=== PATIENT | female | born 1970 | race Caucasian/White ===

== ENCOUNTER 2025-05-23 10:51 | Outpatient (AMB) | payer BC, SELFPAY ==
--- NOTE | 2025-05-23 10:52 | MHC.OFFVIS ---
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 Allergies amitriptyline Allergy (Severe, Verified 05/23/25 10:57) seizures, missing time Latex, Natural Rubber Adverse Reaction (Severe, Verified 05/23/25 10:57) contact dermatitis opioids Adverse Reaction (Severe, Uncoded 05/23/25 10:57) migraines Medication List - Last Reconciled 05/23/25 by Katarina Call LPN baclofen 20 mg PO TID celecoxib (Celebrex) 100 mg PO BID cholecalciferol (vitamin D3) 50 mcg PO DAILY lidocaine 4% 1 appl topical BID magnesium glycinate mg PO pregabalin (Lyrica) 200 mg PO TID vitamin B comp and C no.3 (B Complex Plus Vitamin C) 1 cap PO DAILY HPI HPI Lumbar radiculopathy: Details: History of Present Illness The patient is a 54-year-old female presenting with low back pain with referred pain to the left lower extremity and weakness. The pain has been present for the past 2 years and has worsened over the past 6 months. She was evaluated by Dr. Ibrahim for sacroiliac joint dysfunction and recommended a brace, but her symptoms worsened with increased pain and reduced range of motion. An MRI revealed severe facet disease at L4-5 and L5-S1 without significant canal stenosis. She completed physical therapy but was unable to tolerate medications such as tramadol, gabapentin, or narcotics. The patient also has moderate left hip osteoarthritis, which affects her quality of life. A hip injection provided some relief, but symptoms have continued to worsen. She has a history of trigeminal neuralgia, which has been managed with Lyrica, but she reports breakthrough pain in her right upper face over the past six months. She also has Raynaud's phenomenon and a history of cervical cancer, which was treated surgically last year. Pain Description - Onset: Pain present for 2 years, worsening over the past 6 months - Quality: Sharp, stabbing pains, burning sensation - Location: Low back with radiation to left lower extremity, random areas including shins and shoulder blades - Exacerbating factors: Sitting, standing for prolonged periods, bending - Relieving factors: Physical therapy, hip injections, lidocaine gel, hot tub use - Interference: Affects ability to walk, sit, stand, and perform daily activities Physical Exam - Appears afebrile. - Alert and oriented. - Mood and affect appropriate. - Follows and participates in conversation appropriately. - Respiratory effort is unlabored. - Able to transition from sit to stand unassisted. - Ambulates with bilaterally normal heel strike and toe off. - Able to stand and walk on toes and heels. - Significant kyphotic deformity of the thoracic spine. Results - MRI: Severe facet disease at L4-5 and L5-S1 without significant canal stenosis Pain Management - Affect: Pain impacts daily activities and quality of life - Analgesia: Current medications include Lyrica, Celebrex, and Topamax; pain level reported as 8/10 during flares - Adverse Effects: Unable to tolerate tramadol, gabapentin, or narcotics due to side effects - Activities of Daily Living: Pain limits walking, standing, and daily functioning - Aberrant Drug Related Behaviors: None reported [facility] Medical History (Updated 05/23/25 @ 11:46 by Dmitri Valencia MD) Trigeminal neuralgia Migraine Anxiety disorder Obesity Physical Exam Vital Signs: Last Vital Signs Pulse 87 05/23/25 10:54 Resp 16 05/23/25 10:54 BP 118/80 05/23/25 10:54 Pulse Ox 97 05/23/25 10:54 Oxygen Delivery Method Room Air 05/23/25 10:54 BMI result Body Mass Index 31.0 Assessment & Plan Assessment & Plan (1) Lumbar spondylosis: Code(s): M47.816 - Spondylosis without myelopathy or radiculopathy, lumbar region Category: Medical Plan Plan - Continue follow-up with [facility] for facet interventions, including diagnostic injections and potential radiofrequency ablation. - Consider reducing or discontinuing baclofen and Celebrex as facet pain management progresses. - Use lidocaine patches for localized pain relief as needed. - Maintain current physical therapy regimen and consider additional interventions if necessary. - Monitor for any changes in pain patterns or new symptoms and adjust treatment accordingly. Patient was informed and verbally consented to the use of an ambient scribe for clinic note documentation during this visit. Discussion Notes I discussed with the patient the findings of her MRI, which showed severe facet disease at L4-5 and L5-S1 without significant canal stenosis. We reviewed the plan for diagnostic injections and potential radiofrequency ablation to manage her facet pain. I advised her on the use of lidocaine patches for localized pain relief and discussed the possibility of reducing or discontinuing baclofen and Celebrex as her pain management progresses. We also talked about maintaining her current physical therapy regimen and monitoring for any changes in her pain patterns. Patient Instructions - Follow up with [facility] for scheduled facet interventions. - Use lidocaine patches as needed for pain relief. - Continue with physical therapy and report any changes in pain or new symptoms. - Consider reducing or stopping baclofen and Celebrex as advised. Coding Level of Care Code New Pt Level 4 (82031) Diagnoses Lumbar spondylosis M47.816
[2025-05-23 10:54] VITALS: BP 118/80; PULSE 87; RESP 16; O2SAT 97; BMI 31.0
--- OUTSIDE RECORDS SUMMARY | 2025-05-23 11:48 | XMS_ITS | Clinical Summary ---
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 Name Role Phone Unavailable Primary Care Provider Unavailabl e Social History Tobacco Use Types Packs/Day Years Used Date Smoking Tobacco: Never Assessed Comments Unknown Sex and Gender Information Value Date Recorded Sex Assigned at Not on file Legal Sex Female 12:16 AM EST Gender Identity Not on file Sexual Orientation Not on file Plan of Treatment Health Maintenance Due Date Last Done Comments Breast Cancer Screening 1970 DTaP,Tdap,and Td Vaccines (1 - Tdap) 1989 Hepatitis B Vaccines (1 of 3 - 19+ 3-dose series) 1989 Cervical Cancer Screening: P ap Smear 1991 Pneumococcal Vaccine: 50+ Ye ars (1 of 1 - PCV) 2020 Zoster Vaccines (1 of 2) 2020 COVID-19 Vaccine ( - 2023-2 5 season) 2024 Influenza Vaccine (#1) 2025 HIB Vaccines Aged Out No longer eligi ble based on patient's age to complete this topic HPV Vaccines Aged Out No longer eligi ble based on patient's age to complete this topic Hepatitis A Vaccines Aged Out No long er eligible based on patient's age to complete this topic IPV Vaccines Aged Out No longer eligi ble based on patient's age to complete this topic MMR Vaccines Aged Out No longer eligi ble based on patient's age to complete this topic Meningococcal ACWY Vaccine Aged Out N o longer eligible based on patient's age to complete this topic Meningococcal B Vaccine Aged Out No l onger eligible based on patient's age to complete this topic Pneumococcal Vaccine: Pediat rics (0 to 5 Years) and At-Risk Patients (6 to 64 Years) Aged Out No longer eligible b ased on patient's age to complete this topic RSV Immunization Patients Un dariusz 20 months Aged Out No longer eligible b ased on patient's age to complete this topic Varicella Vaccines Aged Out No longer eligible based on patient's age to complete this topic
== END 2025-05-23 11:30 | disposition home or self-care (01) ==
LOC: HO.PMC 10:51
PROVIDERS: PCP Nurse Practitioner Adult Health; Visit Provider Internal Medicine
DX: M47.816 Spondylosis without myelopathy or radiculopathy, lumbar region (principal)
CPT/HCPCS: 99204